=== PATIENT | male | born 1990 | race Caucasian/White ===

== ENCOUNTER 2019-01-23 19:07 | Emergency (ER) | payer BC ==
[~2019-01-23] VITALS: Ht 172.7 cm; Wt 86.0 kg
[~2019-01-23 19:07] MED LIST: lidocaine 1%/epinephrine 1:100,000 injection 50ml vial ONE
[2019-01-23 19:16] VITALS: BP 130/93
[2019-01-23] MEDS ORDERED: sulfamethoxazole/trimethoprim DS (800/160mg) tablet PO ONE (20:25)
[2019-01-23] MEDS ORDERED: TETanus/Pertussis (Acell)/Diphther VAC/PF (Tdap-Adult) 0.5ml syringe IM ONE (20:25)
[2019-01-23] MEDS ORDERED: cephalexin 500mg capsule PO ONE (20:25)
[2019-01-23] MEDS ORDERED: SULF1TAB49 PO (20:34)
[2019-01-23] MEDS ORDERED: CEPH-572 PO (20:34)
== END 2019-01-23 21:02 | disposition home or self-care (01) ==
LOC: ER 19:09
DX: L02.415 Cutaneous abscess of right lower limb (principal)
CPT/HCPCS: 10060; 90471; 99283